=== PATIENT | female | born 1935 | race Caucasian/White ===

== ENCOUNTER 2019-09-23 23:59 | Inpatient (IN) | payer MEDICARE, OTHER ==
[~2019-09-23] VITALS: Ht 162.6 cm; Wt 91.6 kg
[2019-09-24] MEDS ORDERED: ALEN70TA3 PO (00:53)
[2019-09-24] MEDS ORDERED: ASPI81TA31 PO (00:53)
[2019-09-24] MEDS ORDERED: SIMV40TA2 PO (00:53)
[2019-09-24] MEDS ORDERED: DONE5TAB7 PO (00:53)
[2019-09-24] MEDS ORDERED: ERGO500040 PO (00:53)
[2019-09-24] MEDS ORDERED: LOSA50TA3 PO (00:53)
[2019-09-24] MEDS ORDERED: HYDR12.55 PO (00:53)
[2019-09-24 01:34] VITALS: BP 117/55
[2019-09-24] MEDS ORDERED: RIVAROXABAN 15 MG TABLET PO SCH (02:45)
[2019-09-24] MEDS ORDERED: CEFTRIAXONE 1 G in IV DEXTROSE 5% 50 ML IV SCH (02:45)
[2019-09-24] MEDS ORDERED: Z GUARD REMEDY PASTE 57 GM TUBE TOP PRN (02:45)
[2019-09-24] MEDS ORDERED: ONDANSETRON 4 MG/2 ML VIAL IV PRN (02:45)
[2019-09-24] MEDS: RIVAROXABAN 15 MG TABLET PO SCH ×3 (03:16→17:41)
[2019-09-24] MEDS: IV NS 1000 ML 1,000 ML IV PRN ×2 (03:32→17:35)
[2019-09-24] MEDS: HYDROCODONE/APAP 10-325 MG TABLET PO PRN ×2 (03:32→18:00)
[2019-09-24 05:18] VITALS: BP 148/57
[2019-09-24] MEDS ORDERED: SIMVASTATIN 40 MG TABLET PO SCH (09:00)
[2019-09-24] MEDS ORDERED: LOSARTAN POTASSIUM 50 MG TABLET PO SCH (09:00)
[2019-09-24] MEDS: AMLODIPINE 5 MG TABLET PO SCH (09:00)
[2019-09-24] MEDS: CEFTRIAXONE 1 G in IV DEXTROSE 5% 50 ML IV SCH (09:51)
[2019-09-24] MEDS: ASPIRIN 81 MG TAB.CHEW PO SCH (10:01)
[2019-09-24 10:10] LABS: BASOPHILS % (AUTO) 0.1 % (0.0-2.0); EOSINOPHILS # (AUTO) 0.1 K/uL (0.0-0.7); EOSINOPHILS % (AUTO) 0.3 % (0.0-7.0); HEMATOCRIT 37.9 % (31.2-41.9); HEMOGLOBIN 12.2 g/dL (10.9-14.3); LYMPHOCYTES # (AUTO) 0.7 K/uL (20.0-40.0); LYMPHOCYTES % (AUTO) 4.2 % (20.5-51.5); MEAN CORPUSCULAR HEMOGLOBIN 25.1 uug (24.7-32.8); MEAN CORPUSCULAR HGB CONC 32 g/dL (32.3-35.6); MEAN CORPUSCULAR VOLUME 78.1 fL (75.5-95.3); MONOCYTES # (AUTO) 1.1 K/uL (2.0-10.0); MONOCYTES % (AUTO) 6.8 % (0.0-11.0); NEUTROPHILS # (AUTO) 14.5 K/uL (1.8-8.9); NEUTROPHILS % (AUTO) 88.6 % (38.5-71.5); PLATELET COUNT (AUTO) 317 K/uL (179-408); RED BLOOD CELL COUNT(AUTO) 4.86 MIL/uL (3.63-4.92); WHITE BLOOD COUNT (AUTO) 16.3 K/uL (3.8-11.8)
[2019-09-24 10:19] LABS: CARBON DIOXIDE 26 mmol/L (21-32); CHLORIDE 107 mmol/L (98-107); CREATININE 1.4 mg/dL (0.6-1.3); GLUCOSE 113 mg/dL (74-106); MAGNESIUM 2.2 mg/dL (1.8-2.4); PHOSPHOROUS 3.1 mg/dL (2.5-4.9); POTASSIUM 5.3 mmol/L (3.5-5.1); UREA NITROGEN, BLOOD 54 mg/dL (7-18)
[2019-09-24 10:30] LABS: THYROID STIMULATING HORMONE 1.258 mIU/mL (0.358-3.740)
[2019-09-24 11:16] LABS: CHOLESTEROL 145 mg/dL (<200); HDL CHOLESTEROL 56 mg/dL (40-60); TRIGLYCERIDES 89 MG/DL (30-150)
[2019-09-24 16:00] VITALS: BP 133/44
[2019-09-24] MEDS: CLOTRIMAZOLE 1% CREAM 30 GM TUBE TOP SCH (17:32)
[2019-09-24 20:14] VITALS: BP 130/68
[2019-09-24] MEDS: DONEPEZIL 5 MG TABLET PO SCH (21:00)
[2019-09-24] MEDS: ATORVASTATIN 20 MG TABLET PO SCH (21:01)
[2019-09-24 22:46] LABS: *BILIRUBIN,URIN NEGATIVE (NEGATIVE); *BLOOD, URINE 1+ (NEGATIVE); *CLARITY,URINE CLOUDY (CLEAR); *COLOR,URINE YELLOW (YELLOW); *KETONES,URINE NEGATIVE (NEGATIVE); *UROBILINOGEN,URINE 0.2 E.U./dl (NORMAL); LEUKOCYTE ESTERASE ,URINE 1+ (NEGATIVE); NITRITE, URINE NEGATIVE (NEGATIVE); PH,URINE 5.5 (5.0-8.0); UGLUCOSE NEGATIVE (NEGATIVE)
[2019-09-24 22:56] LABS: *URINE TOTAL PROTEIN RANDOM 26.5 mg/dL (<150/24HR)
[2019-09-25 00:44] LABS: WBC,URINE TNTC /HPF (0-3)
[2019-09-25 00:45] LABS: BACTERIA,URINE FEW /HPF (NONE SEEN); SQUAMOUS EPITHELIAL CELL,UR FEW /HPF (NONE SEEN)
[2019-09-25] MEDS: HYDROCODONE/APAP 10-325 MG TABLET PO PRN ×3 (00:53→20:38)
[2019-09-25] MEDS: ACETAMINOPHEN 325 MG TABLET PO PRN ×2 (02:44→17:33)
[2019-09-25 04:00] VITALS: BP 137/68
[2019-09-25] MEDS: IV NS 1000 ML 1,000 ML IV PRN ×2 (06:13→20:39)
[2019-09-25] MEDS: RIVAROXABAN 15 MG TABLET PO SCH ×2 (08:23→17:34)
[2019-09-25] MEDS: ASPIRIN 81 MG TAB.CHEW PO SCH (08:23)
[2019-09-25] MEDS: AMLODIPINE 5 MG TABLET PO SCH (08:24)
[2019-09-25] MEDS: CEFTRIAXONE 1 G in IV DEXTROSE 5% 50 ML IV SCH (08:27)
[2019-09-25] MEDS: CLOTRIMAZOLE 1% CREAM 30 GM TUBE TOP SCH ×2 (10:05→17:33)
[2019-09-25 11:48] VITALS: BP 130/52
[2019-09-25 15:32] LABS: BASOPHILS % (AUTO) 0.3 % (0.0-2.0); EOSINOPHILS # (AUTO) 0.2 K/uL (0.0-0.7); EOSINOPHILS % (AUTO) 1.9 % (0.0-7.0); HEMATOCRIT 33.9 % (31.2-41.9); HEMOGLOBIN 10.8 g/dL (10.9-14.3); LYMPHOCYTES # (AUTO) 0.8 K/uL (20.0-40.0); LYMPHOCYTES % (AUTO) 6.9 % (20.5-51.5); MEAN CORPUSCULAR HEMOGLOBIN 25.1 uug (24.7-32.8); MEAN CORPUSCULAR HGB CONC 32 g/dL (32.3-35.6); MEAN CORPUSCULAR VOLUME 78.8 fL (75.5-95.3); MONOCYTES # (AUTO) 1.1 K/uL (2.0-10.0); MONOCYTES % (AUTO) 9.3 % (0.0-11.0); NEUTROPHILS # (AUTO) 9.5 K/uL (1.8-8.9); NEUTROPHILS % (AUTO) 81.6 % (38.5-71.5); PLATELET COUNT (AUTO) 289 K/uL (179-408); RED BLOOD CELL COUNT(AUTO) 4.29 MIL/uL (3.63-4.92); WHITE BLOOD COUNT (AUTO) 11.7 K/uL (3.8-11.8)
[2019-09-25 15:34] LABS: IRON, SERUM 30 ug/dL (50-175)
[2019-09-25 15:38] LABS: BILIRUBIN,TOTAL 0.8 mg/dL (0.2-1.0); CREATININE 1.3 mg/dL (0.6-1.3); MAGNESIUM 1.9 mg/dL (1.8-2.4); PHOSPHOROUS 2.6 mg/dL (2.5-4.9); POTASSIUM 4.5 mmol/L (3.5-5.1); TOTAL PROTEIN, SERUM 6.1 g/dL (6.4-8.2)
[2019-09-25 15:51] VITALS: BP 111/44
[2019-09-25 20:09] VITALS: BP 130/57
[2019-09-25] MEDS: DONEPEZIL 5 MG TABLET PO SCH (20:38)
[2019-09-25] MEDS: ATORVASTATIN 20 MG TABLET PO SCH (20:38)
[2019-09-26] MEDS ORDERED: LORAZEPAM 2 MG/1 ML VIAL IV ONE (01:30)
[2019-09-26 01:31] VITALS: BP 120/66
[2019-09-26] MEDS: ACETAMINOPHEN 325 MG TABLET PO PRN (01:58)
[2019-09-26] MEDS ORDERED: IV NORMAL SALINE 500 ML BAG IV ONE (03:00)
[2019-09-26] MEDS: HYDROCODONE/APAP 10-325 MG TABLET PO PRN ×3 (03:57→20:31)
[2019-09-26 04:00] VITALS: BP 117/71
[2019-09-26] MEDS: IV NS 1000 ML 1,000 ML IV PRN (06:06)
[2019-09-26 07:25] LABS: BASOPHILS # (AUTO) 0.1 K/uL (0.0-8.0); BASOPHILS % (AUTO) 0.5 % (0.0-2.0); EOSINOPHILS # (AUTO) 0.3 K/uL (0.0-0.7); EOSINOPHILS % (AUTO) 3.2 % (0.0-7.0); HEMOGLOBIN 10.5 g/dL (10.9-14.3); LYMPHOCYTES % (AUTO) 10.1 % (20.5-51.5); MEAN CORPUSCULAR HEMOGLOBIN 25.8 uug (24.7-32.8); MEAN CORPUSCULAR HGB CONC 33 g/dL (32.3-35.6); MEAN CORPUSCULAR VOLUME 78.8 fL (75.5-95.3); MONOCYTES # (AUTO) 0.8 K/uL (2.0-10.0); MONOCYTES % (AUTO) 8.4 % (0.0-11.0); NEUTROPHILS # (AUTO) 7.6 K/uL (1.8-8.9); NEUTROPHILS % (AUTO) 77.8 % (38.5-71.5); PLATELET COUNT (AUTO) 260 K/uL (179-408); RED BLOOD CELL COUNT(AUTO) 4.06 MIL/uL (3.63-4.92); WHITE BLOOD COUNT (AUTO) 9.8 K/uL (3.8-11.8)
[2019-09-26 07:35] LABS: ALANINE AMINOTRANSFERASE 29 U/L (14-59); ALKALINE PHOSPHATASE 79 U/L (50-136); ASPARTATE AMINOTRANSFERASE 51 U/L (15-37); CARBON DIOXIDE 22 mmol/L (21-32); CHLORIDE 111 mmol/L (98-107); CREATININE 1.5 mg/dL (0.6-1.3); GLUCOSE 89 mg/dL (74-106); MAGNESIUM 1.8 mg/dL (1.8-2.4); PHOSPHOROUS 2.5 mg/dL (2.5-4.9); POTASSIUM 4.5 mmol/L (3.5-5.1); TOTAL PROTEIN, SERUM 5.5 g/dL (6.4-8.2); UREA NITROGEN, BLOOD 37 mg/dL (7-18)
[2019-09-26 08:25] VITALS: BP 122/72
[2019-09-26] MEDS: ASPIRIN 81 MG TAB.CHEW PO SCH (08:36)
[2019-09-26] MEDS: RIVAROXABAN 15 MG TABLET PO SCH ×2 (08:36→17:19)
[2019-09-26] MEDS: CLOTRIMAZOLE 1% CREAM 30 GM TUBE TOP SCH ×2 (08:37→17:17)
[2019-09-26] MEDS: CEFTRIAXONE 1 G in IV DEXTROSE 5% 50 ML IV SCH (08:37)
[2019-09-26] MEDS: AMLODIPINE 5 MG TABLET PO SCH (08:37)
[2019-09-26 12:00] VITALS: BP 121/46
[2019-09-26 15:12] LABS: A/G RATIO 0.8 (0.7-1.7); ALBUMIN 2.4 g/dL (2.9-4.4); ALPHA-1-GLOBULIN 0.3 g/dL (0.0-0.4); ALPHA-2-GLOBULIN 0.7 g/dL (0.4-1.0); BETA GLOBULIN 0.9 g/dL (0.7-1.3); GAMMA GLOBULIN 1.1 g/dL (0.4-1.8); GLOBULIN, TOTAL 3.1 g/dL (2.2-3.9); M-SPIKE Not Observed g/dL (Not Observed)
[2019-09-26 16:00] VITALS: BP 145/48
[2019-09-26 20:15] VITALS: BP 112/45
[2019-09-26] MEDS: DONEPEZIL 5 MG TABLET PO SCH (20:31)
[2019-09-26] MEDS: ATORVASTATIN 20 MG TABLET PO SCH (20:32)
[2019-09-27 00:09] VITALS: BP 100/48
[2019-09-27 04:20] VITALS: BP 134/61
[2019-09-27] MEDS: IV NS 1000 ML 1,000 ML IV PRN (06:02)
[2019-09-27] MEDS: CEFTRIAXONE 1 G in IV DEXTROSE 5% 50 ML IV SCH (08:16)
[2019-09-27] MEDS: RIVAROXABAN 15 MG TABLET PO SCH (08:20)
[2019-09-27 08:42] VITALS: BP 129/62
[2019-09-27] MEDS: CLOTRIMAZOLE 1% CREAM 30 GM TUBE TOP SCH (08:45)
[2019-09-27] MEDS ORDERED: DILTIAZEM HCL CD 120 MG CAP.SR.24H PO SCH (09:00)
[2019-09-27] MEDS ORDERED: RIVA15TA PO (09:57)
[2019-09-27] MEDS ORDERED: DILT120C87 PO (09:57)
[2019-09-27 10:31] LABS: BASOPHILS % (AUTO) 0.4 % (0.0-2.0); EOSINOPHILS # (AUTO) 0.2 K/uL (0.0-0.7); EOSINOPHILS % (AUTO) 2.7 % (0.0-7.0); HEMATOCRIT 29.6 % (31.2-41.9); HEMOGLOBIN 9.9 g/dL (10.9-14.3); LYMPHOCYTES # (AUTO) 0.6 K/uL (20.0-40.0); LYMPHOCYTES % (AUTO) 6.7 % (20.5-51.5); MEAN CORPUSCULAR HEMOGLOBIN 26.2 uug (24.7-32.8); MEAN CORPUSCULAR HGB CONC 33 g/dL (32.3-35.6); MEAN CORPUSCULAR VOLUME 78.7 fL (75.5-95.3); MONOCYTES # (AUTO) 0.6 K/uL (2.0-10.0); MONOCYTES % (AUTO) 7.3 % (0.0-11.0); NEUTROPHILS # (AUTO) 7.4 K/uL (1.8-8.9); NEUTROPHILS % (AUTO) 82.9 % (38.5-71.5); PLATELET COUNT (AUTO) 269 K/uL (179-408); RED BLOOD CELL COUNT(AUTO) 3.76 MIL/uL (3.63-4.92); WHITE BLOOD COUNT (AUTO) 8.9 K/uL (3.8-11.8)
[2019-09-27 10:45] LABS: BILIRUBIN,TOTAL 0.5 mg/dL (0.2-1.0); CREATININE 1.3 mg/dL (0.6-1.3); MAGNESIUM 1.7 mg/dL (1.8-2.4); PHOSPHOROUS 2.1 mg/dL (2.5-4.9); POTASSIUM 4.1 mmol/L (3.5-5.1); TOTAL PROTEIN, SERUM 5.4 g/dL (6.4-8.2)
[2019-09-27] MEDS ORDERED: IV NS 1000 ML 1,000 ML IV PRN (11:34)
[2019-09-27] MEDS ORDERED: NEUTRA PHOS PACKET PO ONE (13:30)
[2019-09-27] MEDS: HYDROCODONE/APAP 10-325 MG TABLET PO PRN (15:26)
== END 2019-09-27 15:30 | disposition home health service (06) | DRG 682 ==
LOC: TELE3 23:59
PROVIDERS: ADMIT Internal Medicine; ATTEND Internal Medicine
DX: N17.0 Acute kidney failure with tubular necrosis (principal); G92 Toxic encephalopathy; E43 Unspecified severe protein-calorie malnutrition; N39.0 Urinary tract infection, site not specified; I82.432 Acute embolism and thrombosis of left popliteal vein; D68.69 Other thrombophilia; L03.119 Cellulitis of unspecified part of limb; B36.9 Superficial mycosis, unspecified; D64.9 Anemia, unspecified; E87.5 Hyperkalemia; I48.0 Paroxysmal atrial fibrillation; Z86.718 Personal history of other venous thrombosis and embolism; F03.90 Unspecified dementia, unspecified severity, without behavioral disturbance, psychotic disturbance, mood disturbance, and anxiety; N18.9 Chronic kidney disease, unspecified; I12.9 Hypertensive chronic kidney disease with stage 1 through stage 4 chronic kidney disease, or unspecified chronic kidney disease; E88.09 Other disorders of plasma-protein metabolism, not elsewhere classified; I87.2 Venous insufficiency (chronic) (peripheral); E66.9 Obesity, unspecified; Z68.34 Body mass index [BMI] 34.0-34.9, adult; M19.90 Unspecified osteoarthritis, unspecified site; I49.3 Ventricular premature depolarization; M81.0 Age-related osteoporosis without current pathological fracture; Z79.01 Long term (current) use of anticoagulants
CPT/HCPCS: 36415; 70030-TC; 71045; 83550; 83735; 83970; 84100; 84155; 84156; 84165; 84300; 84443; 85025; 87086; 93005; 93307; A4663; G0378; J0696; J2060; J7030; J7040; J7060